=== PATIENT | male | born 1960 | race Caucasian/White ===

== ENCOUNTER 2018-12-29 22:03 | Inpatient (IN) | payer BC ==
[~2018-12-29] VITALS: Ht 193 cm; Wt 131.2 kg
[~2018-12-29 22:03] MED LIST: GLUCOSAMINE SUL1 CA4; LOP50; PRI20
[2018-12-29 22:19] VITALS: Ht 193 cm; Wt 131.2 kg
[2018-12-29 23:27] LABS: BASOPHIL % 0.4 % (0-2); PLATELET COUNT 303 x10^3mcL (130-400); RED CELL DISTRIBUTION WIDTH 13.7 % (11.5-14.5)
[2018-12-29 23:34] LABS: microscopic required? NO
[2018-12-29 23:37] LABS: CALCIUM 9.6 mg/dL (8.5-10.1); CARBON DIOXIDE 30.6 mmol/L (21-32); CHLORIDE SERUM 103 mmol/L (98-107); CREATININE SERUM 1.2 mg/dL (0.7-1.3); GFR1 > 60 mL/min; GLUCOSE SERUM 89 mg/dL (74-106); POTASSIUM SERUM 4.2 mmol/L (3.5-5.1); SODIUM SERUM 141 mmol/L (136-145)
[2018-12-29 23:41] LABS: ALBUMIN 3.9 g/dL (3.4-5.0); ALKALINE PHOSPHATASE 94 U/L (46-116); ALT/SGPT 43 U/L (16-63); AST/SGOT 14 U/L (15-37); BILIRUBIN TOTAL 0.32 mg/dL (0.20-1.00)
[2018-12-29 23:42] LABS: TOTAL PROTEIN, SERUM 8.3 g/dL (6.4-8.2)
[2018-12-29 23:57] LABS: UA SPECIFIC GRAVITY 1.015 (1.005-1.035); urine erythrocyte NEGATIVE (NEGATIVE)
[2018-12-30 04:30] LABS: CHOLESTEROL/HDL RATIO 3.5; MAGNESIUM 2.4 mg/dL (1.8-2.4); PHOSPHOROUS 2.9 mg/dL (2.5-4.9)
[2018-12-30 04:31] LABS: AMPHETAMINE QUAL UR NONE DETECTED (See below)
[2018-12-30 05:07] VITALS: BP 139/76
[2018-12-30 06:31] VITALS: BP 131/86
[2018-12-30 09:35] VITALS: BP 133/73
[2018-12-30] MEDS ORDERED: IBUPROFEN600 MG PO (12:28)
[2018-12-30] MEDS ORDERED: PEPCID20 MG PO (12:29)
[2018-12-30 13:21] VITALS: BP 133/73
[2018-12-30 14:09] VITALS: BP 133/73
== END 2018-12-30 15:56 | disposition home or self-care (01) | DRG 558 ==
LOC: ED 22:03 → MU 12-30 03:41
PROVIDERS: Emergency Medicine; ADMIT Internal Medicine
DX: M77.8 Other enthesopathies, not elsewhere classified (principal); Z68.42 Body mass index [BMI] 45.0-49.9, adult; J20.9 Acute bronchitis, unspecified; K21.9 Gastro-esophageal reflux disease without esophagitis; I10 Essential (primary) hypertension; Z96.651 Presence of right artificial knee joint; Z86.711 Personal history of pulmonary embolism; Z86.718 Personal history of other venous thrombosis and embolism
CPT/HCPCS: 83880; 85378; G0378; J1644; J1885; J2270; J2543; J3370; J3490; J7030; J7050; Q0092